=== PATIENT | female | born 1990 | race African-American/Black ===

== ENCOUNTER → 2016-04-18 | Outpatient (CLI) | payer BC, OTHER ==
[~2016-04-18] MED LIST: APAP500; BACTRIM DS TAB1 EACH PO; CLINDAMYCIN HC150 MG PO; DOXYCYCLINE 10100 MG PO; EPIPEN 2-P0.3 MG/0.3 IM; FLAGYL500 MG PO; KEFLEX500 MG PO; NOHOMEMEDICATIONS; NORCO 5-325 TA1 EACH PO; PEPCID40 MG PO; PREDNISONE 20 M20 MG PO
== END ==
LOC: ULTRA 18:20
DX: N91.2 Amenorrhea, unspecified (principal); R10.2 Pelvic and perineal pain